=== PATIENT | female | born 1985 | race Caucasian/White ===

== ENCOUNTER 2016-12-31 22:22 | Emergency (ER) | payer OTHER | END 2017-01-01 00:06 | disposition home or self-care (01) | LOC: FER 22:22 | DX: S60.221A Contusion of right hand, initial encounter (principal); W31.89XA Contact with other specified machinery, initial encounter; Y92.89 Other specified places as the place of occurrence of the external cause; Y99.0 Civilian activity done for income or pay | CPT/HCPCS: 73130; 99283 ==